=== PATIENT | female | born 1970 | race Caucasian/White ===

== ENCOUNTER 2017-12-15 19:13 | Emergency (ER) | payer BC, OTHER ==
[2017-12-15] MEDS ORDERED: Ondansetron ODT 4 MG TAB ONE (19:53)
--- NOTE | 2017-12-15 20:15 | CT ---
CT CERVICAL SPINE NONCONTRAST 12/15/17 HISTORY: Fall. Neck injury. Left arm radiculopathy. FINDINGS: There is reversal of the normal lordotic curvature. Vertebral body heights and cervicothoracic juncti on are intact. No acute fracture or dislocation. No traumatic disc herniation is apparent. Thyroid gland is enlarged and heterogeneous. Cyst is noted in the right thyroid lobe. IMPRESSION: No acute osseous abnormalities are demonstrated. POS: PILAR
[2017-12-15] MEDS ORDERED: HYDROcodone/Acetaminophen 5/325 mg Tablet ONE (20:47)
== END 2017-12-15 20:56 | disposition home or self-care (01) ==
LOC: SCSER 19:13
DX: S16.1XXA Strain of muscle, fascia and tendon at neck level, initial encounter (principal); S46.912A Strain of unspecified muscle, fascia and tendon at shoulder and upper arm level, left arm, initial encounter; M54.12 Radiculopathy, cervical region; K29.70 Gastritis, unspecified, without bleeding; R11.2 Nausea with vomiting, unspecified; F41.9 Anxiety disorder, unspecified; F17.210 Nicotine dependence, cigarettes, uncomplicated; W18.40XA Slipping, tripping and stumbling without falling, unspecified, initial encounter
CPT/HCPCS: 72125; Q0162

== ENCOUNTER 2017-12-28 15:33 | Outpatient (CLI) | payer OTHER | END 2017-12-28 15:34 | disposition home or self-care (01) | LOC: BICMAMMO 15:33 | PROVIDERS: ATTEND Internal Medicine | DX: Z12.31 Encounter for screening mammogram for malignant neoplasm of breast (principal) | CPT/HCPCS: 77063; 77067 ==

== ENCOUNTER 2018-11-04 20:30 | Outpatient (CLI) | payer BC | END 2018-11-04 20:31 | disposition home or self-care (01) | LOC: SLEEPLAB 20:30 | PROVIDERS: ATTEND Internal Medicine | DX: G47.33 Obstructive sleep apnea (adult) (pediatric) (principal); G25.81 Restless legs syndrome; R51 Headache; K21.9 Gastro-esophageal reflux disease without esophagitis; E66.9 Obesity, unspecified; Z68.31 Body mass index [BMI] 31.0-31.9, adult | CPT/HCPCS: 95810 ==

== ENCOUNTER 2020-02-05 18:01 | Emergency (ER) | payer BC ==
--- NOTE | 2020-02-05 20:02 | RAD ---
CHEST ONE VIEW: 02/05/20 INDICATION: Chest pain with left arm numbness. COMPARISON: None. FINDINGS: Lungs are clear. Heart size is normal. No pleural effusion, pneumothorax evident. No acute osseous ab normality is evident. IMPRESSION: No acute cardiopulmonary abnormality. POS: BH
[2020-02-05 20:11] LABS: #Basophils 0.1 thou/uL (0.0-0.2); #Eosinphils 0.4 thou/uL (0.0-0.7); #Lymphocytes 3.8 thou/uL (1.20-3.40); #Monocytes 0.5 thou/uL (0.11-0.59); #Neutrophils 3.7 thou/uL (1.40-6.50); %Basophils 1.2 % (0.0-1.0); %Eosinophils 4.7 % (0.0-10.0); %Lymphocytes 44.6 % (21.0-51.0); %Monocytes 5.4 % (0.0-10.0); %Neutrophils 44.2 % (42.0-75.0); Hemoglobin 14.2 g/dL (12.0-16.0); Mean Corpuscular HGB CONC 34.1 g/dL (32.0-36.0); Mean Corpuscular Hemoglobin 30.9 pg (27.0-31.0); Mean Corpuscular Volume 90.6 fL (78.0-98.0); Mean Platelet Volume 8.2 fL (7.4-10.4); Platelet Count 314 thou/uL (130-400); RBC Distribution Width 11.3 % (11.5-14.5); Red Blood Cell (RBC) Count 4.59 mill/uL (4.20-5.40); White Blood Cell (WBC) Count 8.4 thou/uL (4.8-10.8)
[2020-02-05 20:34] LABS: ALT (SGPT) 32 U/L (8-55); AST (SGOT) 16 U/L (5-34); Alkaline Phosphatase 85 U/L (40-110); Anion Gap 14 mmol/L (10-20); BUN (Urea Nitrogen) 11 mg/dL (7.0-18.7); Bilirubin, Total 0.5 mg/dL (0.2-1.2); Calc. Creatinine Clearance 0 mL/min (70-130); Calcium 8.9 mg/dL (7.8-10.44); Carbon Dioxide 21 mmol/L (22-29); Chloride 108 mmol/L (98-107); Globulin 2.3 g/dL (2.4-3.5); Glucose 182 mg/dL (70-105); Potassium 4.1 mmol/L (3.5-5.1); Protein, Total 6.3 g/dL (6.0-8.3); Sodium 139 mmol/L (136-145)
[2020-02-06 05:45] LABS: SARS-CoV-2 MS2 Positive; SARS-CoV-2 N Gene Negative; SARS-CoV-2 S Gene Negative; SARS-CoV-2 by NAA Not Detected (NotDetected); SARS-CoV-2 orf1ab Negative
== END 2020-02-05 21:03 | disposition home or self-care (01) ==
LOC: ERS 18:01
DX: R07.89 Other chest pain (principal); R20.2 Paresthesia of skin; Z20.828 Contact with and (suspected) exposure to other viral communicable diseases; F17.210 Nicotine dependence, cigarettes, uncomplicated
CPT/HCPCS: 36415; 71045; 80053; 84484; 85025; 87635; 93005; U0003